=== PATIENT | male | born 1995 | race Caucasian/White ===

== ENCOUNTER 2019-02-01 21:12 | Emergency (ER) | payer MEDICAID ==
[~2019-02-01] VITALS: Ht 195.6 cm; Wt 90.0 kg
[2019-02-01] MEDS ORDERED: HYDROcodone/acetaminophen 5mg/325mg tablet PO ONE ×2 (22:00→22:20)
[2019-02-01] MEDS ORDERED: naproxen 500mg tablet PO ONE (22:00)
[2019-02-01] MEDS ORDERED: HYDR-4383 PO (22:11)
[2019-02-01] MEDS ORDERED: NAPR-56 PO (22:11)
[2019-02-01 22:21] VITALS: BP 121/99
== END 2019-02-01 22:30 | disposition home or self-care (01) ==
LOC: ER 21:12
DX: M25.561 Pain in right knee (principal); Z79.899 Other long term (current) drug therapy; X50.1XXA Overexertion from prolonged static or awkward postures, initial encounter; Y93.89 Activity, other specified; Y92.89 Other specified places as the place of occurrence of the external cause; Y99.8 Other external cause status
CPT/HCPCS: 73564; 99283

== ENCOUNTER 2019-06-15 16:21 | Emergency (ER) | payer MEDICAID ==
[~2019-06-15] VITALS: Ht 195.6 cm; Wt 81.8 kg
[~2019-06-15 16:21] MED LIST: HYDR-4383 PO
[2019-06-15 16:27] VITALS: BP 125/63
== END 2019-06-15 16:58 | disposition home or self-care (01) ==
LOC: ER 16:21
DX: M25.511 Pain in right shoulder (principal); Z98.890 Other specified postprocedural states; Z79.899 Other long term (current) drug therapy
CPT/HCPCS: 99281

== ENCOUNTER 2019-12-18 21:13 | Emergency (ER) | payer MEDICAID ==
[~2019-12-18] VITALS: Ht 198.1 cm; Wt 81.2 kg
[2019-12-18] MEDS ORDERED: normal saline 1000ML IV soln IVB ONE (21:25)
[2019-12-18] MEDS ORDERED: DOXY100C43 PO (21:26)
[2019-12-18] MEDS ORDERED: ONDA4TAB12 PO (21:26)
[2019-12-18] MEDS: LORazepam 2 mg/ml vial IV ONE ×2 (21:57→22:07)
[2019-12-18] MEDS: diphenhydrAMINE 50 mg/ml inj IV ONE ×2 (21:58→22:08)
[2019-12-18] MEDS: metoclopramide 5 mg/ml inj IV ONE ×2 (21:58→22:07)
[2019-12-18 22:01] LABS: BASOPHILS # (AUTO) 0.2 X10'3 (0-0.2); BASOPHILS % (AUTO) 1.7 % (0-1); EOSINOPHILS % (AUTO) 0.1 % (0-6); HEMATOCRIT 39.5 % (42.0-52.0); HEMOGLOBIN 13.6 g/dl (14.0-17.9); LYMPHOCYTES # (AUTO) 0.9 X10'3 (1.1-4.8); LYMPHOCYTES % (AUTO) 7.9 % (21-51); MEAN CORPUSCULAR HGB CONC 34.3 g/dL (33.0-36.5); MEAN CORPUSCULAR VOLUME 87.3 FL (78-98); MEAN PLATELET VOLUME 7.5 FL (7.4-10.4); MONOCYTES # (AUTO) 0.7 X10'3 (0-0.9); MONOCYTES % (AUTO) 6.1 % (2-12); NEUTROPHILS # (AUTO) 9.6 X10'3 (1.8-7.7); NEUTROPHILS % (AUTO) 84.2 % (42-75); PLATELET COUNT 415 X10'3 (140-440); RED BLOOD COUNT 4.53 X10'6 (4.70-6.10); RED CELL DISTRIBUTION WIDTH 12.4 % (11.5-14.5); WHITE BLOOD COUNT 11.5 X10'3 (4.5-11.0)
[2019-12-18 22:27] LABS: ALANINE AMINOTRANSFERASE 78 U/L (12-78); ALBUMIN 4.5 G/DL (3.4-5.0); ALBUMIN/GLOBULIN RATIO 1.3 (1.1-1.5); ALKALINE PHOSPHATASE 61 IU/L (46-116); ANION GAP 12 (8-16); ASPARTATE AMINO TRANSFERASE 35 U/L (10-37); BILIRUBIN,TOTAL 0.5 MG/DL (0.1-1.0); BLOOD UREA NITROGEN 17 MG/DL (7-18); BUN/CREATININE RATIO 18.7 (5.4-32.0); CALCIUM 9.6 MG/DL (8.5-10.1); CHLORIDE 102 MMOL/L (99-107); CREATININE 0.91 MG/DL (0.60-1.10); GLUCOSE 126 MG/DL (70-104); POTASSIUM 3.2 MMOL/L (3.5-5.1); SODIUM 139 MMOL/L (135-145); TOTAL CARBON DIOXIDE 25.2 MMOL/L (24-32); TOTAL PROTEIN 8.1 G/DL (6.4-8.2); eGFR > 90 ML/MIN
[2019-12-18 23:15] VITALS: BP 122/48
== END 2019-12-18 23:19 | disposition home or self-care (01) ==
LOC: ER 21:14
DX: M79.671 Pain in right foot (principal); R11.2 Nausea with vomiting, unspecified; Z48.00 Encounter for change or removal of nonsurgical wound dressing; Z98.890 Other specified postprocedural states; Z72.89 Other problems related to lifestyle; Z79.2 Long term (current) use of antibiotics; Z79.899 Other long term (current) drug therapy
CPT/HCPCS: 80053; 85025; 96361; 96374; 96375; 99284; J1200; J2060; J2765; J7030

== ENCOUNTER 2019-12-20 13:50 | Emergency (ER) | payer MEDICAID ==
[~2019-12-20] VITALS: Ht 198.1 cm; Wt 90.0 kg
[~2019-12-20 13:50] MED LIST changes: +DOXY100C43 PO; +ONDA4TAB12 PO
[2019-12-20 13:51] VITALS: BP 152/105
[2019-12-20] MEDS ORDERED: LORazepam 2 mg/ml vial IV ONE (14:20)
[2019-12-20] MEDS ORDERED: ondansetron/PF 4mg/2ml inj IV ONE (14:20)
[2019-12-20] MEDS ORDERED: normal saline 1000ML IV soln IVB ONE (14:20)
[2019-12-20] MEDS ORDERED: haloperidol lactate 5mg/ml inj IM ONE (14:20)
[2019-12-20 14:51] LABS: BASOPHILS # (AUTO) 0.1 X10'3 (0-0.2); BASOPHILS % (AUTO) 0.8 % (0-1); EOSINOPHILS % (AUTO) 0.4 % (0-6); HEMOGLOBIN 15.3 g/dl (14.0-17.9); LYMPHOCYTES # (AUTO) 1.9 X10'3 (1.1-4.8); LYMPHOCYTES % (AUTO) 20.9 % (21-51); MEAN CORPUSCULAR HEMOGLOBIN 29.7 PG (27.0-31.0); MEAN CORPUSCULAR VOLUME 87.5 FL (78-98); MEAN PLATELET VOLUME 7.8 FL (7.4-10.4); MONOCYTES % (AUTO) 10.7 % (2-12); NEUTROPHILS # (AUTO) 6.1 X10'3 (1.8-7.7); NEUTROPHILS % (AUTO) 67.2 % (42-75); PLATELET COUNT 430 X10'3 (140-440); RED BLOOD COUNT 5.14 X10'6 (4.70-6.10); RED CELL DISTRIBUTION WIDTH 12.8 % (11.5-14.5); WHITE BLOOD COUNT 9.1 X10'3 (4.5-11.0)
[2019-12-20 15:08] LABS: ALANINE AMINOTRANSFERASE 58 U/L (12-78); ALBUMIN/GLOBULIN RATIO 1.3 (1.1-1.5); ALKALINE PHOSPHATASE 65 IU/L (46-116); ANION GAP 14 (8-16); ASPARTATE AMINO TRANSFERASE 17 U/L (10-37); BILIRUBIN,TOTAL 0.8 MG/DL (0.1-1.0); BLOOD UREA NITROGEN 10 MG/DL (7-18); BUN/CREATININE RATIO 9.5 (5.4-32.0); CALCIUM 10.8 MG/DL (8.5-10.1); CHLORIDE 99 MMOL/L (99-107); CREATININE 1.05 MG/DL (0.60-1.10); GLUCOSE 104 MG/DL (70-104); POTASSIUM 3.3 MMOL/L (3.5-5.1); SODIUM 138 MMOL/L (135-145); TOTAL CARBON DIOXIDE 25.5 MMOL/L (24-32); eGFR 86 ML/MIN
== END 2019-12-20 16:13 | disposition home or self-care (01) ==
LOC: ER 13:50
DX: R11.15 Cyclical vomiting syndrome unrelated to migraine (principal); F12.188 Cannabis abuse with other cannabis-induced disorder; R11.2 Nausea with vomiting, unspecified; Z72.89 Other problems related to lifestyle; Z79.899 Other long term (current) drug therapy
CPT/HCPCS: 36415; 80053; 85025; 96361; 96372; 96374; 96375; 99284; J1630; J2060; J2405; J7030

== ENCOUNTER 2019-12-22 00:33 | Emergency (ER) | payer MEDICAID ==
[~2019-12-22] VITALS: Ht 198.1 cm; Wt 81.8 kg
--- NOTE | 2019-12-22 00:41 | NUR ---
PT REPORTS NASUEA AND VOMITING THAT "WON'T STOP" COVID NEG SCREEEN AFEBRILE 98.[address] STRIGHT BACK FOR TRIAGE AFTER REGISTRATION TO ROOM 6 PER TELEVISION INSPECTOR
--- NOTE | 2019-12-22 00:53 | NUR ---
MOTHER- QUIRINO [phone]
[2019-12-22] MEDS ORDERED: ondansetron 4mg rapidly disintigrating tab PO ONE (00:55)
[2019-12-22] MEDS ORDERED: cloNIDine 0.1 mg tablet PO ONE (01:05)
[2019-12-22] MEDS ORDERED: ONDA4TAB6 PO (01:10)
[2019-12-22 01:18] VITALS: BP 153/95
[2019-12-22 01:58] LABS: URINE AMPHETAMINE SCREEN NEGATIVE (Neg); URINE BARBITUATE SCREEN NEGATIVE (Neg); URINE BENZODIAZEPINES SCREEN NEGATIVE (Neg); URINE CANNABINOID SCREEN POSITIVE (Neg); URINE COCAINE SCREEN NEGATIVE (Neg); URINE METHADONE SCREEN NEGATIVE (Neg); URINE OPIATE SCREEN NEGATIVE (Neg); URINE PHENCYCLIDINE SCREEN NEGATIVE (Neg)
== END 2019-12-22 01:21 | disposition home or self-care (01) ==
LOC: ER 00:33
DX: R11.2 Nausea with vomiting, unspecified (principal); F11.23 Opioid dependence with withdrawal; F12.90 Cannabis use, unspecified, uncomplicated; Z98.890 Other specified postprocedural states; Z79.899 Other long term (current) drug therapy
CPT/HCPCS: 80305; 99283

== ENCOUNTER 2020-01-30 00:17 | Emergency (ER) | payer MEDICAID ==
[~2020-01-30] VITALS: Ht 198.1 cm; Wt 77.2 kg
[~2020-01-30 00:17] MED LIST changes: -DOXY100C43 PO; +ONDA4TAB6 PO
[2020-01-30 00:21] VITALS: BP 146/92
== END 2020-01-30 01:35 | disposition home or self-care (01) ==
LOC: ER 00:18
DX: S62.337A Displaced fracture of neck of fifth metacarpal bone, left hand, initial encounter for closed fracture (principal); S69.91XA Unspecified injury of right wrist, hand and finger(s), initial encounter; F17.210 Nicotine dependence, cigarettes, uncomplicated; F12.90 Cannabis use, unspecified, uncomplicated; Z98.890 Other specified postprocedural states; Z79.899 Other long term (current) drug therapy; W22.01XA Walked into wall, initial encounter; Y93.89 Activity, other specified; Y92.89 Other specified places as the place of occurrence of the external cause; Y99.8 Other external cause status
CPT/HCPCS: 29125; 73110; 73130; 99284

== ENCOUNTER 2020-08-05 21:37 | Emergency (ER) | payer MEDICAID ==
[~2020-08-05] VITALS: Ht 195.6 cm; Wt 83.6 kg
[2020-08-05] MEDS ORDERED: gabapentin 100mg capsule PO ONE (22:40)
[2020-08-05] MEDS ORDERED: ketorolac trometh. 30mg/ml inj. IM ONE (22:40)
[2020-08-05] MEDS ORDERED: GABA-530 PO (22:45)
[2020-08-05 22:57] VITALS: BP 131/74
== END 2020-08-05 22:59 | disposition home or self-care (01) ==
LOC: ER 21:38
DX: M79.671 Pain in right foot (principal); F12.10 Cannabis abuse, uncomplicated; Z79.899 Other long term (current) drug therapy
CPT/HCPCS: 96372; 99283; J1885

== ENCOUNTER 2022-01-22 08:49 | Emergency (ER) | payer MEDICAID ==
[~2022-01-22] VITALS: Ht 195.6 cm; Wt 90.7 kg
[~2022-01-22 08:49] MED LIST changes: +GABA-530 PO
[2022-01-22] MEDS ORDERED: morphine 4 MG/ML inj SYRINge IV PRN (09:40)
[2022-01-22] MEDS ORDERED: ketorolac trometh. 30mg/ml inj. IV ONE (09:40)
[2022-01-22] MEDS ORDERED: ondansetron/PF 4mg/2ml inj IV ONE (09:40)
[2022-01-22] MEDS ORDERED: diazepam inj 5 MG/ML inj. IV ONE (09:40)
[2022-01-22] MEDS ORDERED: normal saline 1000ML IV soln IVB ONE (09:40)
[2022-01-22 10:02] LABS: BASOPHILS % (AUTO) 0.3 % (0-1); EOSINOPHILS # (AUTO) 0.1 X10'3 (0-0.9); EOSINOPHILS % (AUTO) 1.2 % (0-6); HEMATOCRIT 44.1 % (42.0-52.0); LYMPHOCYTES # (AUTO) 1.5 X10'3 (1.1-4.8); LYMPHOCYTES % (AUTO) 15.5 % (21-51); MEAN CORPUSCULAR HEMOGLOBIN 29.5 PG (27.0-31.0); MEAN CORPUSCULAR HGB CONC 34.1 g/dL (33.0-36.5); MEAN CORPUSCULAR VOLUME 86.7 FL (78-98); MEAN PLATELET VOLUME 7.6 FL (7.4-10.4); MONOCYTES % (AUTO) 10.7 % (2-12); NEUTROPHILS % (AUTO) 72.3 % (42-75); PLATELET COUNT 279 X10'3 (140-440); RED BLOOD COUNT 5.09 X10'6 (4.70-6.10); RED CELL DISTRIBUTION WIDTH 12.2 % (11.5-14.5); WHITE BLOOD COUNT 9.7 X10'3 (4.5-11.0)
[2022-01-22 10:17] LABS: ALANINE AMINOTRANSFERASE 20 U/L (12-78); ALBUMIN 4.5 G/DL (3.4-5.0); ALBUMIN/GLOBULIN RATIO 1.2 (1.1-1.5); ALKALINE PHOSPHATASE 69 IU/L (46-116); ANION GAP 8 (8-16); ASPARTATE AMINO TRANSFERASE 21 U/L (10-37); BILIRUBIN,TOTAL 0.7 MG/DL (0.1-1.0); BLOOD UREA NITROGEN 11 MG/DL (7-18); BUN/CREATININE RATIO 11.7 (5.4-32.0); CALCIUM 9.1 MG/DL (8.5-10.1); CHLORIDE 101 MMOL/L (99-107); CREATININE 0.94 MG/DL (0.60-1.10); GLUCOSE 96 MG/DL (70-104); POTASSIUM 4.5 MMOL/L (3.5-5.1); SODIUM 136 MMOL/L (135-145); TOTAL CARBON DIOXIDE 27.2 MMOL/L (24-32); TOTAL PROTEIN 8.4 G/DL (6.4-8.2); eGFR > 90 ML/MIN
--- NOTE | 2022-01-22 10:40 | NUR ---
BACK FROM CT.
[2022-01-22] MEDS ORDERED: CYCL-1 PO (13:36)
[2022-01-22] MEDS ORDERED: NAPR-56 PO (13:36)
[2022-01-22] MEDS ORDERED: HYDR-3965 PO (13:36)
[2022-01-22 14:10] VITALS: BP 114/79
== END 2022-01-22 14:10 | disposition home or self-care (01) ==
LOC: ER 08:50
DX: S30.811A Abrasion of abdominal wall, initial encounter (principal); S00.01XA Abrasion of scalp, initial encounter; S40.211A Abrasion of right shoulder, initial encounter; S80.212A Abrasion, left knee, initial encounter; S80.211A Abrasion, right knee, initial encounter; S50.312A Abrasion of left elbow, initial encounter; S20.319A Abrasion of unspecified front wall of thorax, initial encounter; F12.10 Cannabis abuse, uncomplicated; Z87.81 Personal history of (healed) traumatic fracture; Z79.899 Other long term (current) drug therapy; V89.2XXA Person injured in unspecified motor-vehicle accident, traffic, initial encounter; Y93.89 Activity, other specified; Y92.89 Other specified places as the place of occurrence of the external cause; Y99.8 Other external cause status
CPT/HCPCS: 36415; 70450; 71045; 72125; 72128; 72131; 73080; 80053; 85025; 86885; 86900; 86901; 96361; 96374; 96375; 99285; J1885; J2405; J3360; J7030